=== PATIENT | female | born 1975 | race Hispanic/Latino ===

== ENCOUNTER 2021-09-08 13:08 | Emergency (ER) | payer SELFPAY ==
[2021-09-08] MEDS ORDERED: HYDROcodone/ACETAMINOPHEN 5-325 MG TAB PO ONE (15:31)
[2021-09-08] MEDS ORDERED: IBUPROFEN 800 MG TAB PO ONE (15:31)
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
[2021-09-08 17:57] VITALS: BP 110/56
== END 2021-09-08 17:58 | disposition home or self-care (01) ==
LOC: EDBD → ED 13:08
DX: S62.307A Unspecified fracture of fifth metacarpal bone, left hand, initial encounter for closed fracture (principal); F17.200 Nicotine dependence, unspecified, uncomplicated; F10.20 Alcohol dependence, uncomplicated; X58.XXXA Exposure to other specified factors, initial encounter; Y93.89 Activity, other specified; Y92.89 Other specified places as the place of occurrence of the external cause; Y99.8 Other external cause status
CPT/HCPCS: 99284

== ENCOUNTER 2021-09-17 18:32 | Emergency (ER) | payer SELFPAY ==
[2021-09-17 18:46] VITALS: BP 119/75
--- NOTE | 2021-09-17 19:26 | XRay Report ---
Right shoulder 3 views INDICATION: Fall FINDINGS: Acute fracture dislocation. AC joint and clavicle appear normal. Right clavicle 2 views INDICATION: Injury FINDINGS: Clavicle appears intact. AC joint appears normal. Old right rib fractures Signer Name: Ant Ferrera MD Signed: 09/17/2021 7:21 PM Workstation Name: [id number]
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
== END 2021-09-17 20:43 | disposition home or self-care (01) ==
LOC: ED 18:32
DX: S40.011A Contusion of right shoulder, initial encounter (principal); X58.XXXA Exposure to other specified factors, initial encounter; Y93.89 Activity, other specified; Y92.89 Other specified places as the place of occurrence of the external cause; Y99.8 Other external cause status
CPT/HCPCS: 99283

== ENCOUNTER 2021-10-09 00:23 | Emergency (ER) | payer SELFPAY ==
[2021-10-09 01:15] LABS: Basophils % (Auto) 0.7 % (0.0-1.8); Eosinophils # (Auto) 0.1 K/mm3 (0.0-0.4); Eosinophils % (Auto) 1.4 % (0.0-4.3); Hematocrit 38.4 % (30.3-42.9); Hemoglobin 12.7 gm/dl (10.1-14.3); Lymphocytes # (Auto) 2.7 K/mm3 (1.2-5.4); Lymphocytes % (Auto) 44.1 % (13.4-35.0); Mean Corpuscular HGB Conc 33 % (30-34); Mean Corpuscular Volume 103 fl (79-97); Monocytes # (Auto) 0.5 K/mm3 (0.0-0.8); Monocytes % (Auto) 8.8 % (0.0-7.3); Platelet Count 171 K/mm3 (140-440); Red Blood Count 3.75 M/mm3 (3.65-5.03); Red Cell Distribution Width 16.5 % (13.2-15.2)
[2021-10-09 01:37] LABS: Alanine Aminotransferase 27 units/L (7-56); Blood Urea Nitrogen 9 mg/dL (7-17); Calcium 8.6 mg/dL (8.4-10.2); Hemolysis Index 6
[2021-10-09 01:45] LABS: BUN/Creatinine Ratio 18
[2021-10-09] MEDS ORDERED: SODIUM CHLORIDE 0.9% 1000 ML 1,000 ML IV ONE (03:38)
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
[2021-10-09 06:09] LABS: Bacteria,Urine 2+ /HPF (Negative); Mucus,Urine FEW /HPF
[2021-10-09 06:19] LABS: Amphetamine Screen,Urine Negative; Benzodiazepines Screen,Urine Negative; Cannabinoid Screen,Urine Negative; Cocaine Screen,Urine Negative; Methadone Screen,Urine Negative; Opiate Screen,Urine Negative
[2021-10-09 06:26] LABS: Bilirubin,Urine Negative (Negative); Blood,Urine Trace (Negative); Color,Urine Colorless (Yellow); Protein,Urine <15 mg/dL mg/dL (Negative); Urobilinogen,Urine < 2.0 mg/dL (<2.0)
[2021-10-09] MEDS ORDERED: chlordiazePOXIDE 25 MG CAP PO PRN (06:46)
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
[2021-10-09 11:36] VITALS: BP 164/102
[2021-10-09] MEDS ORDERED: SERTRALINE 50 MG TAB PO SCH (12:00)
[2021-10-09] MEDS ORDERED: GABAPENTIN 300 MG CAP PO SCH (12:00)
[2021-10-09] MEDS ORDERED: QUEtiapine 100 MG TAB PO SCH (22:00)
== END 2021-10-09 11:49 | disposition home or self-care (01) ==
LOC: EEVIPCON 00:23 → ED 00:23
DX: R45.851 Suicidal ideations (principal); F32.A Depression, unspecified
CPT/HCPCS: 36415; 80053; 80307; 81001; 84703; 85025; 96360; 99284; J7030; 80320; Q0162; G0480